=== PATIENT | male | born 1965 | race Caucasian/White ===

== ENCOUNTER 2020-10-06 15:24 | Emergency (ER) | payer OTHER ==
[~2020-10-06 15:24] MED LIST: ASPIRIN EC81 MG PO; CERTAGEN1 EACH PO; CYMBALTA20 MG PO; CYMBALTA60 MG PO; DULOXETINE HCL30 MG PO; LIPITOR20 MG PO; LOPRESSOR25 MG PO; OXYCODON-ACETA1 EAC1 PO; PERCOCET 7.5/321 TAB PO
[2020-10-06 18:13] LABS: EOSINOPHIL 10.8 % (0-5); HCT 44.5 % (42.0-52.0); LYMPHOCYTE 43.2 % (15-48); MCH 33.9 pg (25.0-31.0); MCHC 33.7 g/dL (32.0-36.0); MCV 100.5 fL (78.0-100.0); MONOCYTE 10.8 % (0-12); MPV 10.8 fL (6.0-9.5); NRBC 0; PLT 243 K/uL (150-400); RBC 4.43 M/uL (4.70-6.00); RDW 12.3 % (11.5-14.0); WBC 8.7 K/uL (4.0-10.5)
[2020-10-06 18:38] LABS: BUN/CREAT RATIO (CALC) 10.7 RATIO; CREATININE 0.84 mg/dL (0.67-1.17); POTASSIUM 4.1 mmol/L (3.5-5.1)
[2020-10-06 18:46] LABS: PRO-BNP 52 pg/mL (<125)
[2020-10-26] MEDS ORDERED: OXYCODON-ACETA1 EAC1 PO (10:54)
[2020-12-26] MEDS ORDERED: OXYCODON-ACETA1 EAC1 PO (16:43)
[2021-02-23] MEDS ORDERED: OXYCODON-ACETA1 EAC1 PO (13:43)
== END 2020-10-06 19:20 | disposition left against medical advice (07) ==
LOC: FER 15:24
PROVIDERS: Nurse Practitioner Family
DX: R05 Cough (principal); R06.02 Shortness of breath; I50.9 Heart failure, unspecified; I25.2 Old myocardial infarction; Z53.8 Procedure and treatment not carried out for other reasons
CPT/HCPCS: 36415; 71045; 80048; 83880; 84484; 85025; 93005; J1100

== ENCOUNTER 2021-07-14 23:44 | Emergency (ER) | payer OTHER ==
[~2021-07-14 23:44] MED LIST changes: +DICLOFENAC SODI75 MG PO
[2021-07-15 01:01] LABS: BASOPHIL 0.9 % (0-2); EOSINOPHIL 1.9 % (0-5); HCT 45.7 % (42.0-52.0); HGB 15.3 g/dl (13.2-18.0); MCH 33.5 pg (25.0-31.0); MCHC 33.5 g/dL (32.0-36.0); MONOCYTE 14.4 % (0-12); MPV 10.7 fL (6.0-9.5); NEUTROPHIL 41.6 % (41-80); NRBC 0; PLT 183 K/uL (150-400); RBC 4.57 M/uL (4.70-6.00); WBC 4.7 K/uL (4.0-10.5)
[2021-07-15 01:05] LABS: INFLUENZA A NAA NEGATIVE (NEGATIVE)
[2021-07-15 01:06] LABS: CORONAVIRUS 2019 SARS-COV-2 POSITIVE (NEGATIVE)
[2021-07-15 01:21] LABS: BUN/CREAT RATIO (CALC) 10.1 RATIO; CREATININE 0.89 mg/dL (0.67-1.17); POTASSIUM 4.2 mmol/L (3.5-5.1)
[2021-07-15] MEDS ORDERED: AZITHROMYCIN250 MG PO (02:15)
[2021-07-15] MEDS ORDERED: PREDNISONE 20MG20 MG PO (02:15)
== END 2021-07-15 02:35 | disposition home or self-care (01) ==
LOC: FER 23:44
PROVIDERS: Internal Medicine
DX: U07.1 COVID-19 (principal); J12.82 Pneumonia due to coronavirus disease 2019; J44.9 Chronic obstructive pulmonary disease, unspecified; I25.10 Atherosclerotic heart disease of native coronary artery without angina pectoris; I25.2 Old myocardial infarction; F17.210 Nicotine dependence, cigarettes, uncomplicated
CPT/HCPCS: 36415; 71045; 80048; 83880; 84145; 85025; 94640; 94664; J1100; U0002